=== PATIENT | female | born 1975 | race Hispanic/Latino ===

== ENCOUNTER 2019-01-08 12:01 | Emergency (ER) | payer SELFPAY ==
[2019-01-08] MEDS ORDERED: ACETAMINOPHEN 325 MG TAB ONE (13:54)
== END 2019-01-08 14:02 | disposition home or self-care (01) ==
LOC: EDH 12:01
DX: S00.83XA Contusion of other part of head, initial encounter (principal); S50.01XA Contusion of right elbow, initial encounter; S70.01XA Contusion of right hip, initial encounter; Z98.51 Tubal ligation status; Z72.0 Tobacco use; W01.0XXA Fall on same level from slipping, tripping and stumbling without subsequent striking against object, initial encounter; Y93.01 Activity, walking, marching and hiking; Y92.89 Other specified places as the place of occurrence of the external cause; Y99.8 Other external cause status
CPT/HCPCS: 70450; 73080; 73552

== ENCOUNTER 2019-07-26 22:11 | Emergency (ER) | payer OTHER | END 2019-07-26 23:51 | disposition home or self-care (01) | LOC: EDH 22:11 | DX: S90.461A Insect bite (nonvenomous), right great toe, initial encounter (principal); Z98.890 Other specified postprocedural states | CPT/HCPCS: 73660; 81025; 82948 ==

== ENCOUNTER 2020-08-06 22:33 | Emergency (ER) | payer MEDICAID ==
[2020-08-06 23:31] LABS: APPEARANCE,URINE Turbid (CLEAR); BILIRUBIN,URINE Negative (NEGATIVE); COLOR,URINE Dark Yellow (YELLOW); GLUCOSE, URINE (UA) Negative (NEGATIVE); KETONES,URINE Trace mg/dL (NEGATIVE); LEUKOCYTE ESTERASE ,URINE Trace (NEGATIVE); NITRATE,URINE Negative (NEGATIVE); OCCULT BLOOD,URINE Moderate (NEGATIVE); PROTEIN,URINE Trace mg/dL (NEGATIVE)
[2020-08-06 23:39] LABS: BACTERIA,URINE Moderate /HPF (None Seen); MUCUS,URINE Many LPF (None Seen); SQUAMOUS EPITHELIAL CELL,UR Many /HPF (0-2)
[2020-08-06 23:41] LABS: HCG,QUAL RESULT NEGATIVE (NEGATIVE)
[2020-08-07] MEDS ORDERED: KETOROLAC TROMETHAMINE 30MG/ML ONE (01:09)
[2020-08-07] MEDS ORDERED: ORPHENADRINE CITRATE 30 MG/ML ML ONE (01:09)
[2020-08-07] MEDS ORDERED: CEPHALEXIN 500 MG CAPSULE ONE (01:09)
[2020-08-07] MEDS ORDERED: ONDANSETRON ODT 4 MG TAB ONE (01:09)
[2020-08-07] MEDS ORDERED: HYDROCODONE/ACETAMINOPHEN 5/325 MG TAB ONE (01:10)
== END 2020-08-07 01:30 | disposition home or self-care (01) ==
LOC: EDH 22:33
DX: N39.0 Urinary tract infection, site not specified (principal); I82.412 Acute embolism and thrombosis of left femoral vein; G89.29 Other chronic pain; M62.838 Other muscle spasm; Z98.51 Tubal ligation status; Z98.890 Other specified postprocedural states
CPT/HCPCS: 81001; 81025; 87088; 93971; 96372 ×2; 99284; J1885; J2360

== ENCOUNTER → 2022-07-15 | Outpatient (CLI) | payer MEDICAID | END | disposition home or self-care (01) | LOC: SHCH 09:01 | PROVIDERS: ATTEND Student in an Organized Health Care Education/Training Program | DX: R06.02 Shortness of breath (principal) | CPT/HCPCS: 93306 ==

== ENCOUNTER → 2024-09-25 | Outpatient (CLI) | payer MEDICAID | END | disposition home or self-care (01) | LOC: RAH 10:15 | PROVIDERS: ATTEND Student in an Organized Health Care Education/Training Program | DX: I08.1 Rheumatic disorders of both mitral and tricuspid valves (principal); R06.09 Other forms of dyspnea | CPT/HCPCS: 93306 ==

== ENCOUNTER 2025-03-31 04:15 | Emergency (ER) | payer MEDICAID ==
[~2025-03-31] VITALS: Ht 162.6 cm; Wt 87.5 kg
--- NOTE | 2025-03-31 04:23 | NUR ---
UA CUP PROVIDED
[2025-03-31] MEDS ORDERED: ONDA-243 PO (05:03)
--- NOTE | 2025-03-31 05:13 | ERN ---
ED Note History of Present Illness Stated Complaint: VOMITING Chief Complaint: Nausea,Vomiting,Diarrhea Time Seen by MD: 04:50 Dictation: This is a 49-year-old obese female who presented to the emergency room stating that she has had nausea and vomitings intractable all day today. Apparently she took a friend's Ozempic shot at 2 mg and immediately developed nausea vomitings and then diarrhea. She when [facility] urgent care but left without being seen due to wait time. No fever chills or rigors no other family members are sick. Most of the contents or stomach contents and clear bile juices. No hematemesis or melena. Temperature 98.8 pulse 102 respirations 16 blood pressure 109/76 with a pulse oximetry of 100% on room air Her other medical problems include the DVT/PE, fibromyalgia and history of Raynaud's disease Allergies: Coded Allergies: No Known Allergies (Unverified Allergy, Unknown, 08/21/14) Home Meds Active Scripts Ondansetron (Ondansetron Odt) 4 Mg Tab.rapdis, 4 MG PO Q6HPRN PRN for nausea, #16 TAB 0 Refills Prov:ANDREW GANDHI MD 03/31/25 Past Medical History Past Medical History: DVT, Fibromyalgia, Other Additional Past Medical Hx: PE, RAYNAUDS Surgical History: Family History: Negative LMP: Mar 27, 2025 RN Note Reviewed/Agreed w/PFSH: Yes Review of System Dictation Constitutional: Negative for fever,chills, and weight loss Eyes: Negative for injury, pain,redness, and discharge ENT: Negative for injury,pain or swelling Cardiovascular: Negative for chest pain, palpitations, and edema Respiratory: Negative for shortness of breath, cough, and wheezing, Abdomen/GI: Positive for abdominal pain, nausea, vomiting, diarrhea, took Ozempic 2 mg subQ last night Back: Negative for injury and pain : Negative for injury, bleeding and discharge MS/Extremity: Negative for injury and deformity Skin: Negative for rash, and discoloration Neuro: Negative for headache, weakness, numbness, tingling, and seizure Psych: Negative for suicide ideation, homicidal ideation, and hallucinations Initial Vital Sign VS Vital Signs Date Time Temp Pulse Resp B/P (MAP) Pulse Ox O2 Delivery O2 Flow Rate FiO2 03/31/25 04:17 98.8 102 16 109/76 100 Room Air Physical Exam Dictation General: awake, alert, NAD morbidly obese Head/Face: Normocephalic, atraumatic Eyes: PERRL, EOMI, vision at baseline ENT: oral cavity clear, TMs clear, no signs of infection Neck: Trachea midline, supple, no nuchal rigidity Cardiovascular: RRR, normal S1/S2, No MRGs, no JVD Respiratory: CTAB, no respiratory distress, No rales or wheezes Abdomen: Soft, non-tender, non-distended, normal bowel sounds, no guarding or rebound. Skin: Warm, dry, normal turgor, no rash MS/Extremity: Pulses equal, no cyanosis, neurovascular intact, FROM Neuro: COAx4, GCS 15, strength 5/5, CN 2-12 intact, normal cerebellar exam, normal gait, Psych: Normal behavior, mood, and affect normal Extremities-trace edema without any palpable cords, Homans sign is negative Results (Laboratory/Radiology) Laboratory/Radiology Laboratory Tests Test 03/31/25 05:03 White Blood Count 7.6 K/uL (4.8-10.8) Red Blood Count 4.87 MIL/uL (4.00-5.50) Hemoglobin 9.0 g/dL (12.0-16.0) L Hematocrit 32.8 % (36-48) L Mean Corpuscular Volume 67.4 fL (79-99) L Mean Corpuscular Hemoglobin 18.5 pg (27.0-33.0) L Mean Corpuscular Hemoglobin Concent 27.4 g/dL (32.0-36.0) L Red Cell Distribution Width 20.5 % (11.0-15.5) H Platelet Count 272 K/uL (130-400) Mean Platelet Volume 9.7 fL (7.5-10.5) Immature Granulocyte % (Auto) 0.3 % (0-1) Neutrophils (%) (Auto) 76.1 % (40.0-77.0) Lymphocytes (%) (Auto) 15.3 % (21.0-51.0) L Monocytes (%) (Auto) 6.7 % (3.0-13.0) Eosinophils (%) (Auto) 1.2 % (0.0-8.0) Basophils (%) (Auto) 0.4 % (0.0-5.0) Neutrophils # (Auto) 5.8 K/uL (1.8-7.7) Lymphocytes # (Auto) 1.2 K/uL (1.0-4.8) Monocytes # (Auto) 0.5 K/uL (0.1-1.0) Eosinophils # (Auto) 0.09 K/uL (0.00-0.70) Basophils # (Auto) 0.03 K/uL (0.00-0.20) Absolute Immature Granulocyte (auto 0.02 K/uL (0-1) Nucleated Red Blood Cells 0.0 % (0.0-0.19) Red Blood Cell Morphology See comments Sodium Level 138 mmol/L (136-145) Potassium Level 4.7 mmol/L (3.5-5.1) Chloride Level 103 mmol/L (101-111) Carbon Dioxide Level 24 mmol/L (21-32) Blood Urea Nitrogen 14 mg/dL (7-18) Creatinine 0.6 mg/dL (0.5-1.0) Glomerular Filtration Rate Calc 111 mL/min (>90) Random Glucose 93 mg/dL (70-105) Total Calcium 8.7 mg/dL (8.5-10.1) Lipase 38 U/L (16-77) Human Chorionic Gonadotropin, Quant 0 mIU/mL (0-5) Labs Reviewed?: Yes ED Course ED Course Orders Procedure Category Date Status Time Cbc With Differential LAB 03/31/25 Complete 04:50 Hcg,Quantitative LAB 03/31/25 Complete 04:50 Urinalysis Profile LAB 03/31/25 Logged 04:50 Ketorolac PHA 03/31/25 Complete Tromethamine 30mg/Ml 05:00 Ondansetron 4mg Inj PHA 03/31/25 Complete (Zofran 4mg Inj) 05:00 Lipase LAB 03/31/25 Complete 04:50 Basic Metabolic Panel LAB 03/31/25 Complete 04:50 Current Medications Medications (Trade) Dose Ordered Sig/Connor Route PRN Reason Start Time Stop Time Status Last Admin Dose Admin Ketorolac Tromethamine (toRADol) 30 mg ONCE ONCE IVP 03/31/25 05:00 03/31/25 05:01 DC 03/31/25 05:04 Ondansetron HCl (zoFRAN 4MG INJ) 4 mg ONCE ONCE IVP 03/31/25 05:00 03/31/25 05:01 DC 03/31/25 05:04 Vital Signs Date Time Temp Pulse Resp B/P (MAP) Pulse Ox O2 Delivery O2 Flow Rate FiO2 03/31/25 04:17 98.8 102 16 109/76 100 Room Air We will perform diagnostic labs, and administer medications according to the patient's complaint. Once the results are available, will review and personally interpreted the labs to rule out any acute life-threatening emergency the trach require immediate intervention and treatment. I will then re-evaluate the patient after treatment and diagnostic exams have return to determine whether the patient requires any further testing, can safely be discharged home or need further admission to hospital for additional treatment and evaluation. Medical Decision Making MDM Differential diagnosis: Likely Ozempic adverse effects as the dose was too high, gastroenteritis, gastritis, cholecystitis, pancreatitis This is a 49-year-old obese female who presented to the emergency room stating that she has had nausea and vomitings intractable all day today. Apparently she took a friend's Ozempic shot at 2 mg and immediately developed nausea vomitings and then diarrhea. She when [facility] urgent care but left without being seen due to wait time. No fever chills or rigors no other family members are sick. Most of the contents or stomach contents and clear bile juices. No hematemesis or melena. Temperature 98.8 pulse 102 respirations 16 blood pressure 109/76 with a pulse oximetry of 100% on room air Her other medical problems include the DVT/PE, fibromyalgia and history of Raynaud's disease 6:35 a.m. CBC showed a white count of 7.6 hemoglobin 9 platelets 272. BNP 7 is with a normal limits. Lipase is 38 test is negative. Patient received IV fluids and antiemetics and feels significantly better I had a long discussion and counseled her at bedside that patient should not be taking GLP 1 agents without medical supervision and the medication is gradually titrated and not started at a very high dose initially. I encouraged her to make an appointment with Weight loss providers who can monitor her labs and condition appropriately. She and spouse verbalized full understanding. I have informed her that I would send a prescription for antiemetics as the effect of Ozempic may last for the whole week. Rationale: Tests considered and ordered secondary to shared decision making include: Previous outside records reviewed: Old ER visits. Risk of complication and/or morbidity or mortality of patient management: None Medications-Per medication reconciliation Need for hospitalization: Patient does not meet criteria for hospitalization. Need for emergency major/minor surgery: No There are no social concerns with this patient. Prescription drug management Prescriptions will include symptomatic care Patient's prior external medical records from other ER visits were reviewed by me as indicated. Prior testing and results from previous visits were reviewed. Prior tests were taken into account with medical decision making and resource utilization, independent historian/historians were used to obtain complete medical history. I independently interpreted the test that were performed, results were reviewed by me and considered findings on radiology if ordered. Medical management and examination interpretation discussions were had by me with other qualified healthcare professionals as indicated for the patient's care. Problem List Problem List: (1) Nausea vomiting and diarrhea (2) Adverse effects of medication (3) Morbid obesity DX & DISP Disposition: Discharge Departure Impression: Primary Impression: Adverse effects of medication Additional Impressions: Nausea vomiting and diarrhea, Morbid obesity Condition: Stable Scripts Ondansetron (Ondansetron Odt) 4 Mg Tab.rapdis 4 MG PO Q6HPRN PRN for nausea, #16 TAB 0 Refills Prov: ANDREW GANDHI MD 03/31/25 Additional Instructions: Patient and the caregiver have been informed of all the diagnostic tests and the imaging conducted during the today's visit to the emergency room and has verbalized understanding of the results I have personally reviewed and int erpreted all diagnostic exams performed here in the ER today as well as the vital signs documented by the nursing staff. The patient is now being discharged to home and should follow up with the primary care physician or the specialist as directed by the ER staff. Follow-up with primary care provider in 1 to 2 days. Take medications as directed here in the emergency room. Okay to continue home medications unless otherwise discussed during your visit in the emergency room today. Return to your nearest emergency room if symptoms worsen or if there is no improvement. Call 911 if you need immediate assistance. Take Tylenol or Motrin [id number] as needed and if no contraindications are present. Increase oral hydration. A wound culture or urine culture was ordered here in the emergency room department please follow-up with primary care provider and advise them to get repeat ports from our facility. If you had any Ivan wrap/splints that were applied here, please do not remove them until you see your primary care or specialty. Referrals: JAMI ARMSTRONG (PCP) ANDREW GANDHI MD Mar 31, 2025 05:13
[2025-03-31 05:15] LABS: IMMATURE GRANULOCYTE ABSOLUTE 0.02 K/uL (0-1); NUCLEATED RED BLOOD CELLS 0.0 % (0.0-0.19); PLATELET COUNT (AUTO) 272 K/uL (130-400); RED BLOOD CELL COUNT(AUTO) 4.87 MIL/uL (4.00-5.50); RED CELL DISTRIBUTION WIDTH 20.5 % (11.0-15.5); WHITE BLOOD COUNT (AUTO) 7.6 K/uL (4.8-10.8)
[2025-03-31 05:27] LABS: CREATININE 0.6 mg/dL (0.5-1.0); GLOMERULAR FILTR. RATE CALC 111.0 mL/min (>90); GLUCOSE,RANDOM 93.0 mg/dL (70-105); SODIUM SERUM 138.0 mmol/L (136-145); UREA NITROGEN, BLOOD 14.0 mg/dL (7-18)
[2025-03-31 05:37] LABS: HCG,QUANTITATIVE 0.0 mIU/mL (0-5)
[2025-03-31 06:00] VITALS: BP 123/66; PULSE 78; RESP 18; TEMP 98.8; O2SAT 98
== END 2025-03-31 06:55 | disposition home or self-care (01) ==
LOC: EDH 04:15
DX: R11.2 Nausea with vomiting, unspecified (principal); T50.995A Adverse effect of other drugs, medicaments and biological substances, initial encounter; R19.7 Diarrhea, unspecified; M79.7 Fibromyalgia; Z86.718 Personal history of other venous thrombosis and embolism; Z86.711 Personal history of pulmonary embolism; E66.01 Morbid (severe) obesity due to excess calories; Y92.89 Other specified places as the place of occurrence of the external cause
CPT/HCPCS: 99284; 96374; 96375; 80048; 84702; 83690; 85025; 36415; J1885; J2405